=== PATIENT | female | born 1965 | race Caucasian/White ===

== ENCOUNTER 2024-11-25 00:27 | Emergency (ER) | payer OTHER ==
[~2024-11-25] VITALS: Wt 63.0 kg
[2024-11-25] MEDS ORDERED: SODIUM CHLORIDE 0.9% 1,000 ML IV ONE (00:35)
[2024-11-25 00:49] LABS: BASO # 0.1 10*3/uL (0.0-0.1); BASO % 1.2 % (0.0-1.0); EOS # 0.4 10*3/uL (0.0-0.4); EOS % 4.6 % (1.0-4.0); MEAN CELL VOLUME 101.0 fl (81.0-99.0); MEAN CORPUSCULAR HGB 33.8 pg (27.0-31.0); MEAN PLATELET VOLUME 9.7 fl (9.6-12.3); MONO # 0.7 10*3/uL (0.1-1.0); MONO % 9.1 % (3.0-9.0); NEUT # 2.6 10*3/uL (2.3-7.9); NEUT % 33.5 % (47.0-73.0); NUCLEATED RED BLOOD CELL 0.0 10*3/uL (0.0-0.0); NUCLEATED RED BLOOD CELL 0.4 % (0.0-0.0); PLATELET COUNT AUTOMATED 361 10*3/uL (130-400); RED CELL DISTRI WIDTH 18.2 % (0-14.5)
[2024-11-25 01:18] LABS: BUN 5 mg/dl (9-23); SGPT/ALT 96 U/L (5-49)
[2024-11-25] MEDS ORDERED: LIPITOR80 MG PO (01:19)
[2024-11-25] MEDS ORDERED: LEVOTHYROXINE88 MCG PO (01:20)
[2024-11-25] MEDS ORDERED: OXYBUTYNIN ER15 MG PO (01:20)
[2024-11-25] MEDS ORDERED: DULOXETINE HCL30 MG PO (01:20)
[2024-11-25] MEDS ORDERED: PROTONIX40 MG PO (01:22)
[2024-11-25] MEDS ORDERED: COREG6.25 MG PO (01:22)
[2024-11-25 01:23] LABS: ETHYL ALCOHOL 333.6 mg/dl (<3)
[2024-11-25] MEDS ORDERED: ASPIRIN ADULT L81 M1 PO (01:23)
[2024-11-25] MEDS ORDERED: ZESTRIL10 MG PO (01:23)
[2024-11-25] MEDS ORDERED: 'XANAX0.5 MG PO (01:23)
[2024-11-25] MEDS ORDERED: VENT7GM INH (01:24)
[2024-11-25] MEDS ORDERED: POTASSIUM CHLORIDE 20 MEQ TAB PO ONE (06:35)
== END 2024-11-25 09:41 | disposition home or self-care (01) ==
LOC: ED 00:27
PROVIDERS: Internal Medicine
DX: F10.129 Alcohol abuse with intoxication, unspecified (principal); R74.01 Elevation of levels of liver transaminase levels; Y90.9 Presence of alcohol in blood, level not specified